=== PATIENT | male | born 1980 | race American Indian/Alaskan Native ===

== ENCOUNTER 2018-05-28 22:34 | Emergency (ER) | payer OTHER ==
[2018-05-28] MEDS ORDERED: MAGNESIUM SULFATE 2GM/50ML 2 GM/50 ML BAG IV ONE ×2 (22:46→22:47)
[2018-05-28] MEDS ORDERED: ATROVENT IH ONE ×2 (22:46→22:50)
[2018-05-28] MEDS ORDERED: SOLU-Medrol IV ONE (22:46)
[2018-05-28] MEDS ORDERED: PROVENTIL IH ONE ×2 (22:46→22:50)
[2018-05-28] MEDS ORDERED: SOLU-Medrol ONE (22:47)
--- NOTE | 2018-05-28 22:50 | Emergency Department Report ---
HPI - General Chief Complaint: Dyspnea/Respdistress Time Seen by Provider: 05/28/18 22:41 - HPI HPI: Room 6 The patient is 37-year-old male presenting with a chief complaint of shortness of breath. The patient states he was in his usual state of health working when at approximately 20:30 his asthma began to flareup. Patient admits to wheezing and shortness of breath and states his symptoms worsen at 21:30. Patient denies cough or fever. Location: Lungs Duration: Hours Quality: Asthma Severity:. Moderate Modifying factors: [see above] Context: [see above] Mode of transportation: [not driving] ED Past Medical Hx - Surgical History Past Surgical History?: No - Family History Family history: no significant - Social History Smoking Status: Never Smoker Substance Use Type: None (denies illicit drug use) - Medications Home Medications: Home Medications Medication Instructions Recorded Confirmed Last Taken Type ALBUTEROL Inhaler (OR & NICU) 2 puff IH QID PRN #1 inhalation 05/29/18 Unknown Rx [Proair] Albuterol Sulfate [Albuterol 0.63% 0.63 mg IH TID PRN #90 ml 05/29/18 Unknown Rx NEBS] Prednisone [predniSONE 10 mg 10 mg PO .TAPER #1 tab.ds.pk 05/29/18 Unknown Rx (6-Day Pack, 21 Tabs)] ED Review of Systems ROS: Stated complaint: ASTHMA ATTACK Other details as noted in HPI Constitutional: denies: fever Eyes: denies: eye pain ENT: denies: throat pain Respiratory: shortness of breath, wheezing. denies: cough Cardiovascular: denies: chest pain Endocrine: no symptoms reported Gastrointestinal: denies: abdominal pain Genitourinary: denies: dysuria Musculoskeletal: denies: back pain Neurological: denies: headache Physical Exam - Physical Exam Physical Exam: GENERAL: The patient is well-developed well-nourished male tripoding on stretcher. [] HEENT: Normocephalic. Atraumatic. Extraocular motions are intact. Patient has moist mucous membranes. NECK: Trachea midline CHEST/LUNGS: Diffuse wheezing. There is no respiratory distress noted. HEART/CARDIOVASCULAR: Regular. There is tachycardia. There is no gallop rub or murmur. ABDOMEN: Abdomen is soft, nontender. Patient has normal bowel sounds. There is no abdominal distention. SKIN: There is no rash. There is no diaphoresis. NEURO: The patient is awake, alert, and oriented. The patient is cooperative. The patient has normal speech MUSCULOSKELETAL: There is no evidence of acute injury. ED Course - Reevaluation(s) Reevaluation #1: 05/28/18 23:32 Patient states he is improving 05/29/18 01:30 Patient states he feels improved and is comfortable going home ED Medical Decision Making - Radiology Data Radiology results: report reviewed (chest x-ray), image reviewed (chest x-ray) interpreted by me: Chest x-ray-no focal infiltrates, no pneumothorax Findings [facility] [address] [place] [address] XRay Report Signed Patient: SUNDEEP SOLANO MR#: [id number] : 1980 Acct:[id number] Age/Sex: 37 / M ADM Date: 05/28/18 Loc: ED Attending Dr: Ordering Physician: TANK BERG MD Date of Service: 05/28/18 Procedure(s): XR chest 1V ap Accession Number(s): [id number] cc: TANK BERG MD Fluoro Time In Minutes: PROCEDURE: XR CHEST 1V AP TECHNIQUE: Chest radiograph single view. HISTORY: shortness of breath COMPARISONS: None . FINDINGS: Heart: Normal. Mediastinum/Vessels: Normal. Lungs/Pleural space: Normal. Bony thorax: No acute osseous abnormality. Life support devices: None. IMPRESSION: No acute cardiopulmonary abnormality. This document is electronically signed by Elan Camarena MD., May 29 2018 12:25:33 AM ET Transcribed By: CO Dictated By: ELAN CAMARENA MD Electronically Authenticated By: ELAN CAMARENA MD Signed Date/Time: 05/29/1826 DD/ 11 TD/TT: 05/28/182311 - Differential Diagnosis acute asthma exacerbation Critical care attestation.: If time is entered above; I have spent that time in minutes in the direct care of this critically ill patient, excluding procedure time. ED Disposition Clinical Impression: Acute asthma exacerbation, Shortness of breath Disposition: DC-01 TO HOME OR SELFCARE Is pt being admited?: No Does the pt Need Aspirin: No Condition: Stable Instructions: Asthma (ED) Additional Instructions: Return to the emergency department immediately should you develop worsening symptoms, fever, inability to tolerate food or liquid or any other concerns. Prescriptions: Albuterol Sulfate [Albuterol 0.63% NEBS] 0.63 mg IH TID PRN #90 ml PRN Reason: Wheezing Prednisone [predniSONE 10 mg (6-Day Pack, 21 Tabs)] 10 mg PO .TAPER #1 tab.ds.pk ALBUTEROL Inhaler (OR & NICU) [Proair] 2 puff IH QID PRN #1 inhalation PRN Reason: Shortness Of Breath Referrals: SAVANNAH BATISTA MD [Staff Physician] - 3-5 Days Time of Disposition: 01:30
--- NOTE | 2018-05-29 00:27 | XRay Report ---
PROCEDURE: XR CHEST 1V AP TECHNIQUE: Chest radiograph single view. HISTORY: shortness of breath COMPARISONS: None . FINDINGS: Heart: Normal. Mediastinum/Vessels: Normal. Lungs/Pleural space: Normal. Bony thorax: No acute osseous abnormality. Life support devices: None. IMPRESSION: No acute cardiopulmonary abnormality. This document is electronically signed by Elan Jose MD., May 29 2018 12:25:33 AM ET
[2018-05-29 02:39] VITALS: BP 135/81
== END 2018-05-29 02:00 | disposition home or self-care (01) ==
LOC: ED 22:34
DX: J45.901 Unspecified asthma with (acute) exacerbation (principal)
CPT/HCPCS: 71045; 94640; 96365; 96375; 99283; J2930; J3475

== ENCOUNTER 2019-04-26 20:11 | Emergency (ER) | payer SELFPAY ==
[2019-04-26 20:39] VITALS: BP 127/71
== END 2019-04-26 21:13 | disposition left against medical advice (07) ==
LOC: ED 20:11
DX: N63.20 Unspecified lump in the left breast, unspecified quadrant (principal); Z53.21 Procedure and treatment not carried out due to patient leaving prior to being seen by health care provider